=== PATIENT | female | born 1985 | race Caucasian/White ===

== ENCOUNTER 2023-10-14 12:25 | Emergency (ER) | payer OTHER, SELFPAY ==
[2023-10-14 12:35] VITALS: BP 129/80; PULSE 75; RESP 20; TEMP 36.3; O2SAT 97
--- NOTE | 2023-10-14 13:15 | ED.GENADULT ---
HPI - General Adult General Chief complaint: Dental/Oral Stated complaint: Toothache Source: patient Mode of arrival: ambulatory Limitations: no limitations History of Present Illness HPI narrative: Patient presents for evaluation of pain in her left upper gums for last week. Pain is constant, throbbing, rated 10/10 severity. She tried taking some [id number] medications without improvement. She is living with HIV, currently on Odefsey. She is not sure what her last CD4 count or viral load were. No fever, chills, nausea, vomiting, trismus, problems handling secretions. Pain is shooting up into the left side of her face. Related Data Home Medications Medication Instructions Recorded Confirmed albuterol sulfate 90 mcg/actuation inhalation 10/14/23 aerosol inhaler emtricitabine 200 mg-rilpivirine tablet PO 10/14/23 25 mg-tenofovir alafenam 25 mg tablet (Odefsey) famotidine 20 mg tablet mg 10/14/23 metformin 500 mg tablet mg 10/14/23 Allergies Allergy/AdvReac Type Severity Reaction Status Date / Time bupropion Allergy Mild SEIZURES Unverified 06/10/17 17:32 Penicillins Allergy Mild RASH Unverified 06/10/17 17:32 amoxicillin Allergy Unknown Verified 06/10/17 17:32 oxycodone AdvReac Intermediate Unverified 06/10/17 17:32 Review of Systems Review of Systems: CONSTITUTIONAL: Denies fever, chills, or sweats. EYES: Denies visual changes, redness, or discharge. ENT: Reports pain in left upper gums. Denies rhinorrhea, congestion, sore throat, or otalgia. CARDIOVASCULAR: Denies chest pain, palpitations, or edema. RESPIRATORY: Denies cough or dyspnea. GASTROINTESTINAL: Denies abdominal pain, nausea, vomiting, or diarrhea. GENITOURINARY: Denies dysuria or hematuria. SKIN: Denies rash or itching. MUSCULOSKELETAL: Denies back pain, joint pain, or myalgia. NEUROLOGIC: Denies headache, numbness, dizziness, or weakness. PSYCHIATRIC: Denies anxiety or depression. [facility] Past Medical History Medical History Diabetes HIV (human immunodeficiency virus infection) Surgical History Surgical History No pertinent past surgical history Family History Family History Mother Family history non-contributory Social History Social History Smoking packs per day: 1 Smoking cigarettes per day: 20.0 Smoking status: Current every day smoker Substance use: never Gender identity (if verbalized by the patient): Female Spiritual care concerns: No Exam Narrative: GENERAL: Well-appearing, well-nourished, and in no acute distress. HEAD: Normocephalic, atraumatic. EYES: PERRLA and EOMI. ENT: Nares clear, no rhinorrhea or epistaxis. Mucous membranes moist. Several fractured teeth present. There are also significant number of missing teeth. No tenderness, fluctuance or swelling in the gumline. bilateral TMs pearly machado nonbulging NECK: Supple. No adenopathy or masses. No carotid bruits or JVD CHEST: Clear to auscultation. No respiratory distress. No wheezes rales or rhonchi HEART: Regular rate and rhythm. No murmur heard. Normal peripheral pulses. ABDOMEN: Soft, nontender, nondistended, normal active bowel sounds. EXTREMITIES: Normal range of motion. No edema. SKIN: Warm, dry, no rash. NEURO: No focal deficits. Alert and oriented x3. PSYCH: Normal mood and affect. Course Course Emergency Course: This is a 38-year-old female who presented for evaluation of pain in left upper gums for about 1 week. She has several allergies. Will treat with clindamycin and hydrocodone. Advised smoking cessation. Follow up with primary provider and dentist. Go to the ER for worsening symptoms. Patient in agreement plan of care Level of Care: Express Care Visit Vital Signs
== END 2023-10-14 13:22 | disposition home or self-care (01) ==
PROVIDERS: Emergency Provider Nurse Practitioner
DX: S02.5XXA Fracture of tooth (traumatic), initial encounter for closed fracture (principal); E11.9 Type 2 diabetes mellitus without complications; B20 Human immunodeficiency virus [HIV] disease; F17.210 Nicotine dependence, cigarettes, uncomplicated; Z79.899 Other long term (current) drug therapy; Z79.84 Long term (current) use of oral hypoglycemic drugs; X58.XXXA Exposure to other specified factors, initial encounter
CPT/HCPCS: 99203; G0463